=== PATIENT | male | born 1965 | race Caucasian/White ===

== ENCOUNTER 2017-12-04 04:25 | Inpatient (IN) | payer OTHER ==
[~2017-12-04] VITALS: Ht 177.8 cm; Wt 115.9 kg
[2017-12-04 05:26] LABS: CHLORIDE 110 mEq/L (99-109); POTASSIUM 3.7 mEq/L (3.7-5.4); SODIUM 143 mEq/L (136-147)
[2017-12-04 05:29] LABS: GLUCOSE 139 mg/dL (70-99); TOTAL PROTEIN 6.6 g/dL (6.4-8.3)
[2017-12-04 05:31] LABS: TOTAL BILIRUBIN 0.4 mg/dL (0.0-1.0)
[2017-12-04 05:32] LABS: ALKALINE PHOSPHATASE 51 IU/L (3-129); BASOPHIL (%) 0.4 % (0-1); CREATININE 0.8 mg/dL (0.6-1.3); EOSINOPHIL (%) 1.4 % (0-5); EOSINOPHIL COUNT 0.1 K/uL (0-0.3); GFR ESTIMATE (CALCULATED) > 59 mL/min/ (58.99-99999); HEMATOCRIT 46.6 % (38.0-50.0); HEMOGLOBIN 15.7 G/DL (12.5-16.6); IMMATURE GRANULOCYTE (%) 0.6 % (0.0-0.7); LYMPHOCYTE (%) 30.7 % (15-42); LYMPHOCYTE COUNT 2.6 K/uL (1.0-2.8); MCH 31.4 PG (29.0-34.0); MCHC 33.7 G/DL (30.0-36.0); MCV 93.2 FL (86-99); MONOCYTE (%) 8.9 % (3-12); MONOCYTE COUNT 0.8 K/uL (0-0.8); PLATELET COUNT 270 K/uL (156-360); RBC DIS.WIDTH-CV 12.6 % (11.8-14.6); RBC DIS.WIDTH-SD 43.1 % (39-53); WHITE BLOOD COUNT 8.6 K/uL (4.1-10.2)
[2017-12-04 05:33] LABS: UREA NITROGEN (BUN) 15 mg/dL (9-23)
[2017-12-04 05:34] LABS: AST (GOT) 21 IU/L (2-34)
[2017-12-04 05:35] LABS: ALT (GPT) 34 IU/L (3-49)
[2017-12-04 05:38] LABS: TROP-I INTERPRETATION NEGATIVE; TROPONIN-I < 0.01 ng/mL (0.0-0.30)
[2017-12-04 06:35] LABS: D-DIMER ELISA < 150.00 ng/mLDDU (<230)
[2017-12-04] MEDS ORDERED: ZESTRIL20 MG PO (07:42)
[2017-12-04] MEDS ORDERED: OMEPRAZOLE40 M1 PO (07:42)
[2017-12-04] MEDS ORDERED: LO-DOSE ASPIRIN81 M1 PO (07:42)
[2017-12-04] MEDS ORDERED: PRAVACHOL20 MG PO (07:43)
[2017-12-04 09:15] VITALS: BP 130/73
[2017-12-04 09:55] VITALS: BP 128/72
[2017-12-04 10:54] VITALS: BP 130/70
[2017-12-04 11:14] VITALS: BP 110/63
[2017-12-04 12:23] LABS: TROP-I INTERPRETATION NEGATIVE; TROPONIN-I < 0.01 ng/mL (0.0-0.30)
[2017-12-04 16:04] VITALS: BP 118/62
[2017-12-04 17:38] LABS: TROP-I INTERPRETATION NEGATIVE; TROPONIN-I < 0.01 ng/mL (0.0-0.30)
[2017-12-04 17:47] VITALS: BP 121/58
[2017-12-05] VITALS (7 sets, daily range): BP systolic 109–126; BP diastolic 53–75
[2017-12-06 03:52] VITALS: BP 142/68
[2017-12-06 11:07] VITALS: BP 104/57
[2017-12-06 15:21] VITALS: BP 119/70
[2017-12-06 20:00] VITALS: BP 136/63
[2017-12-07 00:19] VITALS: BP 136/77
[2017-12-07 04:22] VITALS: BP 124/74
[2017-12-07 06:07] LABS: HEMATOCRIT 45.4 % (38.0-50.0); HEMOGLOBIN 14.9 G/DL (12.5-16.6); MCH 30.2 PG (29.0-34.0); MCHC 32.8 G/DL (30.0-36.0); MCV 92.1 FL (86-99); PLATELET COUNT 283 K/uL (156-360); RBC DIS.WIDTH-CV 12.2 % (11.8-14.6); RBC DIS.WIDTH-SD 41.8 % (39-53); RED BLOOD COUNT 4.93 M/uL (4.00-5.50); WHITE BLOOD COUNT 13.1 K/uL (4.1-10.2)
[2017-12-07 06:34] LABS: CHLORIDE 101 MEQ/L (99-109); CREATININE 0.8 MG/DL (0.6-1.3); GFR ESTIMATE (CALCULATED) > 59 mL/min/ (58.99-99999); GLUCOSE 87 mg/dL (70-99); POTASSIUM 3.8 MEQ/L (3.7-5.4); SODIUM 137 MEQ/L (136-147); UREA NITROGEN (BUN) 11 mg/dL (9-23)
[2017-12-07 07:59] VITALS: BP 173/74
[2017-12-07 08:16] VITALS: BP 130/80
[2017-12-07 11:15] VITALS: BP 143/76
[2017-12-07] MEDS ORDERED: NITROSTAT0.4 MG SL (16:10)
[2017-12-07] MEDS ORDERED: LOSARTAN POTASS25 MG PO (16:10)
[2017-12-07] MEDS ORDERED: PREDNISONE20 MG PO (16:10)
[2017-12-07] MEDS ORDERED: NICOTINE PATCH1 EAC1 TD (16:10)
[2017-12-07] MEDS ORDERED: TRAMADOL HCL50 MG PO (16:10)
[2017-12-07] MEDS ORDERED: LOPRESSOR25 MG PO (16:11)
[2017-12-07 16:31] LABS: HDL CHOLESTEROL 42 MG/DL (Desirable>=40); LDL CHOLESTEROL 102 mg/dL (Desirable<100); NON-HDL CHOLESTEROL 132 mg/dL (Desirable<160); TOTAL CHOLESTEROL 174 mg/dL (Desirable<200); TRIGLYCERIDES 148 MG/DL (Normal: <150)
[2017-12-08 09:29] LABS: HEMOGLOBIN A1c (GLYCOHEMOGLOB) 5.9 % (Below 5.7)
== END 2017-12-07 19:52 | disposition home or self-care (01) | DRG 287 ==
LOC: EME 04:25 → EDOF 08:19 → 4SOUTH 08:19 → EDOF 08:19 → ENRESERV 08:31 → EDOF 08:33 → ENRESERV 08:42 → 4SOUTH 09:12 → CANRESERV 12-05 12:31 → ENRESERV 12-05 12:31 → 4SOUTH 12-07 19:52
PROVIDERS: Emergency Medicine; Internal Medicine
DX: I25.110 Atherosclerotic heart disease of native coronary artery with unstable angina pectoris (principal); R09.02 Hypoxemia; R06.2 Wheezing; G44.40 Drug-induced headache, not elsewhere classified, not intractable; T46.3X5A Adverse effect of coronary vasodilators, initial encounter; I10 Essential (primary) hypertension; E78.5 Hyperlipidemia, unspecified; K21.9 Gastro-esophageal reflux disease without esophagitis; K44.9 Diaphragmatic hernia without obstruction or gangrene; E66.01 Morbid (severe) obesity due to excess calories; F17.210 Nicotine dependence, cigarettes, uncomplicated; Z68.36 Body mass index [BMI] 36.0-36.9, adult; Z79.82 Long term (current) use of aspirin; Z82.49 Family history of ischemic heart disease and other diseases of the circulatory system
CPT/HCPCS: 71046; 71250; 80048; 80053; 80061; 83036; 83735; 83880; 84484; 85025; 85027; 85379; 93005; 93306; 94640; 94640 76; 94760; 94799; 99202; 99281; 99285; C1769; C1887; G0378; J1644; J1650; J2250; J3010; J7512